=== PATIENT | male | born 1955 | race Caucasian/White ===

== ENCOUNTER 2016-12-06 10:28 | Outpatient (CLI) | payer MEDICAID ==
[~2016-12-06] VITALS: Ht 195.6 cm; Wt 66.4 kg
[~2016-12-06 10:28] MED LIST: ASPIRIN81 MG PO; BENICAR20 MG PO; HYDROCODON-ACE1 EAC7 PO; HYDROCODONE-APA1 TAB PO; HYDROCORTISO28.35 G1 TOPICAL; NICODERM C1 PATCH .1 TRANSDERM
[2016-12-06] MEDS ORDERED: MORPHINE SULFAT30 M4 PO (11:27)
[2016-12-06 11:31] VITALS: BP 95/63; Ht 195.6 cm; Wt 66.4 kg
--- NOTE | 2016-12-06 17:56 | NUR ---
1320- PT CAME WITH RIGHT CHEST INFUSAPORT ACCESSED FROM OFFICE. FIRST UNIT OF PRBC'S TRANSFUSING WITHOUT DIFFICULTY. WILL MONITOR.
--- NOTE | 2016-12-06 18:41 | NUR ---
1450 REPORT RECEIVED FROM QUIRINO PINA RN, PT RECEIVING BLOOD VIA INFUSAPORT. DENIES PROBLEMS RATE AT 200/CC/HR. 1520 URINAL PROVIDED, VOIDS 300CC. 1544 1ST UNIT BLOOD HAS COMPLETED LINE BEING FLUSHED WITH NS. 1558 LASIX 20MG IV GIVEN. 1625 2ND UNIT CHECKED AT BEDSIDE BY THIS NURSE AND LORENE GREENBERG RN INITIATED BY ALARIS PUMP AT 50/CC/HR. PT VOIDS 300/CC/HR 1640 DENIES PROBLEMS, RATE INCREASED TO 125/CC/HR. 1710 BLOOD GOING WELL, RATE INCREASED TO 175/CC/HR REG DIET ORDERED 1755 VOIDS 200/CC AWAITING SUPPER 1822 REG DIET SERVED BLOOD HAS COMPLETED LINE BEING FLUSHED WITH NS.
--- NOTE | 2016-12-06 19:44 | NUR ---
190 LINE HAS CLEARED PT VOIDS LG AMT. PORT FLUSHED WITH NS AND HEPARIN, BESS NEEDLE DC'D WITH CATH INTACT. 1924 POST Bria MCCANN, DENIES PROBLEMS, DC INSTS. REVIEWED. RELEASED AMB.
== END 2016-12-06 19:25 | disposition home or self-care (01) ==
LOC: D.OPS 10:28
DX: D64.81 Anemia due to antineoplastic chemotherapy (principal)

== ENCOUNTER 2017-01-29 09:19 | Inpatient (IN) | payer MEDICAID ==
[~2017-01-29] VITALS: Ht 195.6 cm; Wt 60.0 kg
[~2017-01-29 09:19] MED LIST changes: +MORPHINE SULFAT30 M4 PO
[2017-01-29 10:11] LABS: BASOPHILS 0.2 % (0.0-2.0); EOSINOPHILS 0.2 % (0-7); HEMATOCRIT 28.3 % (42.0-54.0); HEMOGLOBIN 8.9 g/dL (13.5-17.5); IMMATURE GRANULOCYTES 0.7 % (0-5); LYMPHOCYTES 7.4 % (15-50); MCH 25.7 pg (26.0-34.0); MCHC 31.4 g/dL (31.0-37.0); MCV 81.8 fL (80.0-100.0); MEAN PLATELET VOLUME 10.3 fL (7.4-10.4); MONOCYTES 4.3 % (2-11); NEUTROPHILS 87.2 % (40-80); PLATELET COUNT 436 10x3/uL (130-400); RBC 3.46 10x6/uL (4.20-6.10); WBC 12.7 10x3/uL (4.8-10.8)
[2017-01-29 10:20] LABS: ALBUMIN 2.6 g/dL (3.4-5.0); ALKALINE PHOSPHATASE 116 U/L (46-116); ALT (SGPT) 22 U/L (10-68); BILIRUBIN - TOTAL 0.43 mg/dL (0.2-1.3); CALC OSMOLALITY 272 mosm/kg (275-300); CARBON DIOXIDE 27.6 mmol/L (21.0-32.0); CHLORIDE - SERUM 100 mmol/L (98-107); CREATININE - SERUM 0.9 mg/dL (0.6-1.3); GLUCOSE 119 mg/dL (74-106); POTASSIUM - SERUM 3.9 mmol/L (3.5-5.1); PROTEIN - SERUM 7.2 g/dL (6.4-8.2); SODIUM 135 mmol/L (136-145); UREA NITROGEN 18 mg/dL (7-18); eGFR NON AFRICAN AMERICAN > 90 mL/min (90-120)
[2017-01-29 10:23] LABS: CALCIUM 12.2 mg/dL (8.5-10.1)
--- NOTE | 2017-01-29 12:30 | NUR ---
PT REC'D TO FLOOR FROM ER VIA WC. ABLE TO AMBULATE W/O ASSISTANCE. AAOX4. PT THIN. REGULAR HEART RATE AND RHYTHM. LUNG SOUNDS DIMINISHED THOUGHTOUT. BOWEL SOUNDS HYPOACTIVE. X4 QUADRANTS. NICKEL SIZE SCAB TO COCCYX. NO DRAINAGE NOTED. R CHEST PORT WELL DEFINED. BED LOW, CALL LIGHT IN REACH, DENIES NEEDS. CPOC.
[2017-01-29] MEDS ORDERED: GABAPENTIN100 MG PO (12:46)
[2017-01-29] MEDS ORDERED: MORPHINE SULFAT30 M4 PO (12:47)
[2017-01-29] MEDS ORDERED: BACLOFEN10 MG PO (12:48)
[2017-01-29] MEDS ORDERED: PHENERGAN25 M1 PO (12:48)
[2017-01-29] MEDS ORDERED: ZANAFLEX6 MG PO (12:49)
[2017-01-29] MEDS ORDERED: IBUPROFEN200 MG PO (12:50)
[2017-01-29] MEDS ORDERED: HYDROCODON-ACE1 EAC9 PO (12:51)
--- NOTE | 2017-01-29 16:19 | NUR ---
PT AOX4 RESP EVEN AND NONLABORED RESP EVEN AND NONLABORED PT DENIES NEEDS AT THIS TIME BED AT LOWEST SETTING AND CALL LIGHT WITHIN REACH PT HERE FOR HELP WITH CONSTIPATION WILL CONTINUE TO MONITOR
[2017-01-29 16:36] VITALS: BP 105/69
--- NOTE | 2017-01-29 16:45 | NUR ---
GOLYTELY STARTED AT THIS TIME. MIXED WITH SPRITE AND GATORAGE. EXPLAINED TO PT TO DRINK 8 OZ Q 10-15 MINUTES. PT STATES HE UNDERSTANDS. BED LOW, CALL LIGHT IN REACH, DENEIS NEEDS. CPOC.
--- NOTE | 2017-01-29 18:34 | NUR ---
PT HAD LARGE BM. STATED HE WOULD KEEP DRINKING THE GOLYTELY TO HELP "CLEAN HIMSELF OUT" HE STATES. DR. PIKE UPDATED ON POC.
[2017-01-29 20:00] VITALS: BP 83/53
--- NOTE | 2017-01-30 00:21 | NUR ---
PATIENT COMPLAINED OF 8/10 PAIN AND GOT A NORCO TABLET FOR PAIN. REQESTED A SLEEPING MEDICATION AND ASKED WHEN HE WOULD STOP HAVING BOWEL MOVEMENTS. UA COLECTED AND SENDING TO LAB. NO OTHER NEEDS NOTED AT THIS TIME.
[2017-01-30 00:30] VITALS: BP 76/47
[2017-01-30 00:44] LABS: APPEARANCE HAZY (CLEAR); BILIRUBIN NEGATIVE (NEGATIVE); COLOR YELLOW (YELLOW); GLUCOSE NEGATIVE (NEGATIVE); KETONE NEGATIVE (NEGATIVE); LEUKOCYTE ESTERASE NEGATIVE (NEGATIVE); NITRITE NEGATIVE (NEGATIVE); PROTEIN NEGATIVE (NEGATIVE); UROBILINOGEN NORMAL (NORMAL)
--- NOTE | 2017-01-30 02:00 | NUR ---
PT IN BED WITH NO NEEDS. SIDE RAILS X 2. BED LOW. CALL LIGHT IN REACH.
--- NOTE | 2017-01-30 02:43 | NUR ---
PATIENT HAD SOFT BOWEL MOVEMENT IN BED. 20G PIV STARTED IN RIGHT FOREARM WITH NS INFUSING AT 100mL/HR.
[2017-01-30 04:39] VITALS: BP 93/66
[2017-01-30 05:25] LABS: BASOPHILS 0.1 % (0.0-2.0); EOSINOPHILS 0.4 % (0-7); HEMATOCRIT 26.6 % (42.0-54.0); HEMOGLOBIN 8.4 g/dL (13.5-17.5); IMMATURE GRANULOCYTES 0.3 % (0-5); LYMPHOCYTES 8.2 % (15-50); MCH 25.6 pg (26.0-34.0); MCHC 31.6 g/dL (31.0-37.0); MCV 81.1 fL (80.0-100.0); MEAN PLATELET VOLUME 11.3 fL (7.4-10.4); MONOCYTES 5.9 % (2-11); NEUTROPHILS 85.1 % (40-80); PLATELET COUNT 399 10x3/uL (130-400); RBC 3.28 10x6/uL (4.20-6.10); RDW 19.8 % (11.5-14.5); WBC 11.5 10x3/uL (4.8-10.8)
[2017-01-30 05:54] LABS: CALC OSMOLALITY 273 mosm/kg (275-300); CARBON DIOXIDE 25.7 mmol/L (21.0-32.0); CHLORIDE - SERUM 101 mmol/L (98-107); CREATININE - SERUM 0.7 mg/dL (0.6-1.3); GLUCOSE 101 mg/dL (74-106); POTASSIUM - SERUM 4.3 mmol/L (3.5-5.1); SODIUM 136 mmol/L (136-145); UREA NITROGEN 17 mg/dL (7-18); eGFR NON AFRICAN AMERICAN > 90 mL/min (90-120)
[2017-01-30 06:07] LABS: CALCIUM 12.4 mg/dL (8.5-10.1)
--- NOTE | 2017-01-30 06:22 | NUR ---
PAGED FOR MD TO NOTIFY THEM OF CRITICAL HI LAB FOR CALCIUM 12.4
--- NOTE | 2017-01-30 07:47 | NUR ---
PATIENT IS IN THE SHOWER. PROFESSOR OF THEATRE IN ROOM CHANGING BED LINENS.
--- NOTE | 2017-01-30 07:55 | NUR ---
PATIENT ALERT IN [place] POSITION. RESPIRATIONS EVEN AND UNLABORED. VENANCIO, NURSE AID AT BEDSIDE. SIDE RAILS UP X2. BED IN LOW POSITION. CALL LIGHT IN REACH.
--- NOTE | 2017-01-30 08:12 | NUR ---
PT ASSESSMENT COMPLETE AWAKE AND ALERT ORINETED X 3 HAS KNOWN HISTORY OF STAGE 4 LUNG CANCER NOTED TO HAVE DIMINISHED BREATH SOUNDS TO RIGHT UPPER LOBE. HAS COMPLAINT THIS AM OF MULTIPLE BOWEL MOVMENTS PT WAS TAKING GO AUGUSTUS TO RESOLVE CONSTIPATION. EXPLAINED TO PT THAT IT WOULD NOT BE WOLFE TO NOW ATTEMPT TO STOP STOOL. PT EXPRESSED UNDERSTANDING.
[2017-01-30 08:58] VITALS: BP 108/87
[2017-01-30 11:36] VITALS: BP 121/82
--- NOTE | 2017-01-30 12:30 | NUR ---
Patient Name: TRINI NAGY Admission Status: ER Accout number: [id number] Admission Date: 01-29-2017 : 1955 Admission Diagnosis: Attending: VIDHYA Current LOS: 1 Anticipated DC Date: 02-02-2017 Planned Disposition: Home or Self Care Primary Insurance: [place]ICAID [place] Discharge Planning Comments: CM MET WITH PATIENT REGARDING D/C NEEDS AND PLANS. PATIENT STATED HE LIVES WITH HIS FIANCE (JADEN WEISS) AND SHE WILL DRIVE HIM HOME AT DISCHARGE. PATIENT HAS 2 STEPS TO ENTER HOME AND NO STAIRS INSIDE. PATIENT STATED HE IS INDEPENDENT WITH HIS CARE AND HAS NO DME AT HOME. PATIENT HAS NO PCP AND USES [facility] [address] FOR HIS PHARMACY. PATIENT IS INTERESTED IN [employer]ALS ON WHEELS AND NUMBER HAS BEEN GIVEN TO PATIENT. PATIENT HAS NOT HAD HOME HEALTH AND DOES NOT WANT IT AT THIS TIME. PCP NONE [facility] [address]- [phone] JADEN WEISS ([employer]) [phone] Airport Sales Agent: Isela Love Is the patient Alert and Oriented? Yes 0 * How many steps to enter\exit or inside your home? 2 W/RAILS 0 * PCP NONE 0 * [facility] [address] * Preadmission Environment Home with Family 0 * ADLs Independent 0 * Equipment None 0 * List name and contact numbers for known caregivers / representatives who currently or will assist patient after discharge: JADEN SHULTZTERS (CANDE) [phone] KRISTA (BROTHER) [phone] * Community resources currently utilized None 0 * Additional services required to return to the preadmission environment? Yes 0 * Can the patient safely return to the preadmission environment? Yes 0 * Has this patient been hospitalized within the prior 30 days at any hospital? No 0 Grand Total: 0
--- NOTE | 2017-01-30 13:47 | NUR ---
PT COMPLAINS OF PAIN TO ANAL OPENING NOTED TO HAVE HEMMERHOID. NEW ORDER FOR ANUSOL SUPPOSITORY.
[2017-01-30 14:44] VITALS: BMI 15.6
[2017-01-30 15:51] VITALS: BP 104/77
--- NOTE | 2017-01-30 18:10 | NUR ---
PT CONTINUES TO HAVE SMALL SOFT STOOLS HAD HC SUPPOSITORY PER ORDER EARLIER STATES RELEIF OF HEMMROIDAL PAIN.
[2017-01-30 19:00] VITALS: BP 119/75
--- NOTE | 2017-01-30 20:45 | NUR ---
PATIENT RESTING IN BE RIGHT LATERAL POSITION. NO SIGNS OF DISTRESS NOTED. C/O PAIN TO CHEST AND BACK. SCHEDULEDS MS CONTIN GIVEN. OTHER SCHEDULED MEDS GIVEN. SHIFT ASSESSMENT COMPLETED. DENIES ANY OTHER NEEDS AT THIS TIME. BED LOW. CALL LIGHT IN REACH.
[2017-01-31] VITALS: BP 101/67
[2017-01-31 04:00] VITALS: BP 116/82
--- NOTE | 2017-01-31 04:33 | NUR ---
ИВАН ZHANG AT BEDSIDE. PATIENT'S BED IN LOWEST POSITION AND CALL LIGHT WITHIN REACH.
[2017-01-31 05:41] LABS: HEMATOCRIT 25.8 % (42.0-54.0); HEMOGLOBIN 8.5 g/dL (13.5-17.5); LYMPHOCYTES 9.3 % (15-50); MCH 26.9 pg (26.0-34.0); MCHC 32.9 g/dL (31.0-37.0); MCV 81.6 fL (80.0-100.0); MEAN PLATELET VOLUME 10.2 fL (7.4-10.4); NEUTROPHILS 83.2 % (40-80); RBC 3.16 10x6/uL (4.20-6.10); RDW 19.6 % (11.5-14.5); WBC 12.2 10x3/uL (4.8-10.8)
[2017-01-31 05:43] LABS: PLATELET COUNT 495 10x3/uL (130-400)
[2017-01-31 06:08] LABS: ALBUMIN 2.6 g/dL (3.4-5.0); ALKALINE PHOSPHATASE 103 U/L (46-116); ALT (SGPT) 18 U/L (10-68); BILIRUBIN - TOTAL 0.45 mg/dL (0.2-1.3); CALC OSMOLALITY 275 mosm/kg (275-300); CALCIUM 11.2 mg/dL (8.5-10.1); CARBON DIOXIDE 24.4 mmol/L (21.0-32.0); CHLORIDE - SERUM 105 mmol/L (98-107); CREATININE - SERUM 0.6 mg/dL (0.6-1.3); GLUCOSE 87 mg/dL (74-106); POTASSIUM - SERUM 4.4 mmol/L (3.5-5.1); PROTEIN - SERUM 6.7 g/dL (6.4-8.2); SODIUM 139 mmol/L (136-145); UREA NITROGEN 10 mg/dL (7-18); eGFR NON AFRICAN AMERICAN > 90 mL/min (90-120)
--- NOTE | 2017-01-31 07:55 | NUR ---
ASSESSMENT PER FLOW SHEET.PT WITHOUT DISTRESS AT PRESENT. REQUEST APAIN MEDS WHEN TIME.CALL LIGHT IN REACH.
[2017-01-31 08:10] VITALS: BP 101/75
[2017-01-31 11:41] VITALS: BP 111/77
[2017-01-31 14:17] VITALS: Ht 195.6 cm; Wt 60.0 kg
[2017-01-31 16:41] VITALS: BP 120/74
--- NOTE | 2017-01-31 19:38 | NUR ---
REMAINS WITHOUT NEEDS,WITHOUT CHANGE.CONT PLAN OF CARE
--- NOTE | 2017-01-31 19:50 | NUR ---
RIGHT PORT ACCESSED USING HELP DESK TECHNICIAN 20G X1 STCK
[2017-01-31 20:00] VITALS: BP 102/67
--- NOTE | 2017-01-31 20:05 | NUR ---
ASSESSMENT COMPLETED, NO ACUTE DISTRESS NOTED, DENIES NEEDS AT THIS TIME, REFUSES TELEMETERY, SR'S UP ,CL IN REACH, WILL MONITOR
--- NOTE | 2017-01-31 21:19 | NUR ---
MEDS GIVEN PER MAR, BENNIE WELL, DENIES NEEDS, STILL REFUSES TELEMETRY, WILL RETURN BOX, CL IN REACH
[2017-02-01] VITALS: BP 118/74
[2017-02-01 04:00] VITALS: BP 94/62
--- NOTE | 2017-02-01 06:12 | NUR ---
MEDS GIVEN PER MAR, BENNIE WELL, CL IN REACH
--- NOTE | 2017-02-01 07:15 | NUR ---
ASSESSMENT PER FLOW SHEET.PT WITHOUT DISTRESS.STILL COMPLAINS OF PAIN TO ABDOMEN,RECTAL AND RIGHT SIDE.WITHOUT FURTHER NEEDS AT PRESENT.CALL LIGHT IN REACH.
[2017-02-01 08:30] LABS: BASOPHILS 0.2 % (0.0-2.0); EOSINOPHILS 0.3 % (0-7); HEMATOCRIT 24.7 % (42.0-54.0); IMMATURE GRANULOCYTES 0.3 % (0-5); LYMPHOCYTES 8.2 % (15-50); MCH 26.4 pg (26.0-34.0); MCHC 32.4 g/dL (31.0-37.0); MCV 81.5 fL (80.0-100.0); MONOCYTES 9.4 % (2-11); NEUTROPHILS 81.6 % (40-80); PLATELET COUNT 491 10x3/uL (130-400); RBC 3.03 10x6/uL (4.20-6.10); RDW 19.5 % (11.5-14.5)
[2017-02-01 08:41] VITALS: BP 109/75
[2017-02-01 08:59] LABS: ALBUMIN 2.7 g/dL (3.4-5.0); ALKALINE PHOSPHATASE 98 U/L (46-116); ALT (SGPT) 16 U/L (10-68); BILIRUBIN - TOTAL 0.56 mg/dL (0.2-1.3); CALC OSMOLALITY 274 mosm/kg (275-300); CALCIUM 11.3 mg/dL (8.5-10.1); CARBON DIOXIDE 23.5 mmol/L (21.0-32.0); CHLORIDE - SERUM 105 mmol/L (98-107); CREATININE - SERUM 0.6 mg/dL (0.6-1.3); POTASSIUM - SERUM 3.9 mmol/L (3.5-5.1); PROTEIN - SERUM 6.9 g/dL (6.4-8.2); SODIUM 139 mmol/L (136-145); UREA NITROGEN 10 mg/dL (7-18); eGFR NON AFRICAN AMERICAN > 90 mL/min (90-120)
[2017-02-01 09:10] LABS: GLUCOSE 68 mg/dL (74-106)
--- NOTE | 2017-02-01 12:22 | NUR ---
LYING IN BED,WITHOUT DISTRESS.CALL LIGHT IN REACH
--- NOTE | 2017-02-01 13:56 | NUR ---
NUTRITION MONITORING & EVAL CHART REVIEWED. PT ON CLEAR LIQUID DIET. RECOMMEND ADVANCE DIET WHEN MEDICALLY FEASIBLE. RD FOLLOWING
[2017-02-01 13:58] VITALS: BP 118/85
--- NOTE | 2017-02-01 16:07 | NUR ---
AGREEABLE TO FLEETS ENEMA.3 LARGE FORMED STOOLS LIGHT BROWN IN COLOR.
[2017-02-01 17:09] VITALS: BP 110/73
--- NOTE | 2017-02-01 18:05 | NUR ---
SPOKE WITH DEONDRE IN PHARMACY RE... MIACALIN DOSE FOR THIS AFTERNOON. HE IS TO BRING DOSE TO UNIT
--- NOTE | 2017-02-01 18:23 | NUR ---
REMAINS WITHOUT NEEDS,WITHOUT CHANGE.CONT PLAN OF CARE
[2017-02-01 20:00] VITALS: BP 106/59
--- NOTE | 2017-02-01 20:40 | NUR ---
AWAKE,ALERT. NO COMPLAINTS VOICED.IV INFUSING TO RIGHT PORT WIHTOUT REDNESS OR EDEMA NOTED. CL IN REACH.
[2017-02-02] VITALS: BP 88/53
--- NOTE | 2017-02-02 03:10 | NUR ---
AWAKE WIHTOUT COMPLAINTS. CL IN REACH..
[2017-02-02 04:00] VITALS: BP 95/60
--- NOTE | 2017-02-02 04:34 | NUR ---
PT IS AWAKE MOVING ABOUT THE BED TRYING TO GET COMFORTABLE. NO DISTRESS NOTED. RESPIRATIONS ARE EVEN AND UNLABORED. THE BED IS LOW, RAILS UP X'S 2 WITH THE CALL LIGHT AT HAND.
[2017-02-02 05:40] LABS: BASOPHILS 0.1 % (0.0-2.0); EOSINOPHILS 0.1 % (0-7); HEMATOCRIT 25.1 % (42.0-54.0); HEMOGLOBIN 7.9 g/dL (13.5-17.5); IMMATURE GRANULOCYTES 0.2 % (0-5); LYMPHOCYTES 7.7 % (15-50); MCH 25.8 pg (26.0-34.0); MCHC 31.5 g/dL (31.0-37.0); MEAN PLATELET VOLUME 10.8 fL (7.4-10.4); MONOCYTES 7.9 % (2-11); PLATELET COUNT 508 10x3/uL (130-400); RBC 3.06 10x6/uL (4.20-6.10); RDW 19.4 % (11.5-14.5); WBC 14.7 10x3/uL (4.8-10.8)
--- NOTE | 2017-02-02 06:11 | NUR ---
LYING QUIETLY. NO COMPLINATS VICED. CL IN REACH.
[2017-02-02 06:25] LABS: ALBUMIN 2.7 g/dL (3.4-5.0); ALKALINE PHOSPHATASE 100 U/L (46-116); ALT (SGPT) 16 U/L (10-68); BILIRUBIN - TOTAL 0.66 mg/dL (0.2-1.3); CARBON DIOXIDE 22.9 mmol/L (21.0-32.0); CHLORIDE - SERUM 106 mmol/L (98-107); CREATININE - SERUM 0.6 mg/dL (0.6-1.3); POTASSIUM - SERUM 3.7 mmol/L (3.5-5.1); PROTEIN - SERUM 6.8 g/dL (6.4-8.2); SODIUM 140 mmol/L (136-145); UREA NITROGEN 10 mg/dL (7-18); eGFR NON AFRICAN AMERICAN > 90 mL/min (90-120)
[2017-02-02 06:45] LABS: CALC OSMOLALITY 275 mosm/kg (275-300); GLUCOSE 64 mg/dL (74-106)
[2017-02-02 08:01] VITALS: BP 100/64
--- NOTE | 2017-02-02 10:40 | NUR ---
PT ASSESSMENT COMPLETE AWAKE AND ALERT ORIENTED X 3 LUNGS WITH DIMINISHED RIGHT UPPER LOOBE NOTED POSTIERROIR. PT HAS COMLAINT OF PAIN AND DISCOMFORT WITH AMBULATION. DR AGAPITO ASHLEY
[2017-02-02 12:11] VITALS: BP 94/60
[2017-02-02 15:44] VITALS: BP 77/42
--- NOTE | 2017-02-02 17:48 | NUR ---
DR MULLER HERE TO MANUALLY REMOVE LARGE SOFT FECES BALL. PT HAD BEEN GIVEN DILAUDID FOR PAIN. NS BOLUS RUNNING FOR LOW PRESSURE. PT TOLERATED PROCEDURE WITH SOME DISCOMFORT BUT PAIN WAS TOLERABLE AFTERWARDS. CLEANED UP AND NEW LINENS TO BED. CALL LIGHT IN REACH
--- NOTE | 2017-02-02 18:44 | NUR ---
PT RESTING WELL AT THIS TIME TOOK ALL MEDS WITH NO DIFFICULTY NOTED VOICES ALL NEEDS TO STAFF. TOLERATED BLOOD TRANSFUSION WITH NO DIFFICULTY.
[2017-02-02 20:00] VITALS: BP 101/61
[2017-02-03] VITALS: BP 85/55
[2017-02-03 04:00] VITALS: BP 94/58
--- NOTE | 2017-02-03 05:05 | NUR ---
PT IS ASLEEP WITH EASY RESPIRATION AND NO DISTRESS NOTED. ON ROOM AIR ONLY. THE URINAL IS AT THE BEDSIDE. THE BED IS LOW, RAILS UP X'S 2 WITH THE CALL LIGHT AT HAND.
[2017-02-03 06:09] LABS: BASOPHILS 0.1 % (0.0-2.0); EOSINOPHILS 0.5 % (0-7); HEMATOCRIT 26.6 % (42.0-54.0); HEMOGLOBIN 8.6 g/dL (13.5-17.5); IMMATURE GRANULOCYTES 0.3 % (0-5); LYMPHOCYTES 8.2 % (15-50); MCH 26.2 pg (26.0-34.0); MCHC 32.3 g/dL (31.0-37.0); MCV 81.1 fL (80.0-100.0); MEAN PLATELET VOLUME 9.8 fL (7.4-10.4); MONOCYTES 7.3 % (2-11); NEUTROPHILS 83.6 % (40-80); PLATELET COUNT 447 10x3/uL (130-400); RBC 3.28 10x6/uL (4.20-6.10); RDW 18.9 % (11.5-14.5); WBC 14.3 10x3/uL (4.8-10.8)
[2017-02-03 06:28] LABS: ALBUMIN 2.4 g/dL (3.4-5.0); ALKALINE PHOSPHATASE 109 U/L (46-116); ALT (SGPT) 17 U/L (10-68); CARBON DIOXIDE 26.5 mmol/L (21.0-32.0); CHLORIDE - SERUM 105 mmol/L (98-107); CREATININE - SERUM 0.5 mg/dL (0.6-1.3); POTASSIUM - SERUM 3.6 mmol/L (3.5-5.1); PROTEIN - SERUM 6.4 g/dL (6.4-8.2); SODIUM 136 mmol/L (136-145); UREA NITROGEN 9 mg/dL (7-18); eGFR NON AFRICAN AMERICAN > 90 mL/min (90-120)
[2017-02-03 07:07] LABS: CALC OSMOLALITY 270 mosm/kg (275-300); GLUCOSE 103 mg/dL (74-106)
[2017-02-03 07:09] LABS: CALCIUM 12.4 mg/dL (8.5-10.1)
--- NOTE | 2017-02-03 07:40 | NUR ---
REPORT RECEIVED FROM MOISTURE CONDITIONER OPERATOR NURSE. CALL LIGHT IN REACH.
[2017-02-03 08:50] VITALS: BP 88/60
--- NOTE | 2017-02-03 09:05 | NUR ---
ASSESSMENT COMPLETED. OFFERED SCDs BUT REFUSED. CALL LIGHT IN REACH. WILL CONTINUE WITH PLAN OF CARE.
--- NOTE | 2017-02-03 11:31 | NUR ---
AM MEDS ADMINISTERED. BACLOFEN PO. ALSO HELD BP MED D/T BP OF 88/40.
--- NOTE | 2017-02-03 11:36 | NUR ---
PASSWORD OBTAINED AND PLACED IN COMPUTER.
[2017-02-03] MEDS ORDERED: MIRALAX17 GM PO (12:18)
[2017-02-03] MEDS ORDERED: ANUSOL-HC 2.5%30 GM RC (12:18)
[2017-02-03] MEDS ORDERED: MILK OF MAGNESI30 ML PO (12:19)
[2017-02-03 12:59] VITALS: BP 86/58
--- NOTE | 2017-02-03 13:14 | NUR ---
CM REASSESSMENT NOTE: PATIENT IS DISCHARGING HOME TODAY- FIANCE DRIVING HIM HOME. PATIENT IS HAVING A WALKER DELIVERED FROM [facility] BEFORE D/C . PATIENT REF. HH AND HAD NO OTHER NEEDS FOR D/C.
--- NOTE | 2017-02-03 14:34 | NUR ---
OMICO PO. WILL GO HEAD AND GET PRBC.
--- NOTE | 2017-02-03 15:07 | NUR ---
pt seen for glue wheel operator note. bp meds held today due to low bp. not complaining of abdominal pain but still some rectal pain. call light in reach
--- NOTE | 2017-02-03 17:16 | NUR ---
AFTERNOON MEDS ADMINISTERED. CALL LIGHT IN REACH.
--- NOTE | 2017-02-03 18:56 | NUR ---
PRBC UNIT 1 COMPLETED. VSS. ALBUMIN 1ST BOTTLE INITIATED.
--- NOTE | 2017-02-03 20:01 | NUR ---
DC INSTRUCTIONS EXPLAINED TO PATIENT. VERBALIZED UNDERSTANDING.
--- NOTE | 2017-02-03 20:22 | NUR ---
DC'D TO VEHICLE VIA WC WITH BROTHER.
== END 2017-02-03 20:22 | disposition home or self-care (01) | DRG 388 ==
LOC: D.ER 09:19 → D.MS 11:34 → OBSVTIME 11:34 → D.MS 01-30 10:25
PROVIDERS: Emergency Medicine; ADMIT Family Medicine
DX: K56.41 Fecal impaction (principal); E43 Unspecified severe protein-calorie malnutrition; C34.90 Malignant neoplasm of unspecified part of unspecified bronchus or lung; F17.203 Nicotine dependence unspecified, with withdrawal; R04.2 Hemoptysis; R64 Cachexia; Z68.1 Body mass index [BMI] 19.9 or less, adult; R73.9 Hyperglycemia, unspecified; D63.0 Anemia in neoplastic disease; Z86.12 Personal history of poliomyelitis; I95.9 Hypotension, unspecified; R00.0 Tachycardia, unspecified; G89.29 Other chronic pain; K64.8 Other hemorrhoids; D50.9 Iron deficiency anemia, unspecified

== ENCOUNTER 2017-02-09 11:43 | Inpatient (IN) | payer MEDICARE ==
[~2017-02-09 11:43] MED LIST changes: +ANUSOL-HC 2.5%30 GM RC; +BACLOFEN10 MG PO; +GABAPENTIN100 MG PO; +HYDROCODON-ACE1 EAC9 PO; +IBUPROFEN200 MG PO; +MILK OF MAGNESI30 ML PO; +MIRALAX17 GM PO; +PHENERGAN25 M1 PO; +ZANAFLEX6 MG PO
[2017-02-09 13:39] LABS: HEMATOCRIT 30.5 % (42.0-54.0); HEMOGLOBIN 9.6 g/dL (13.5-17.5); MCH 26.2 pg (26.0-34.0); MCHC 31.5 g/dL (31.0-37.0); MCV 83.3 fL (80.0-100.0); MEAN PLATELET VOLUME 10.4 fL (7.4-10.4); PLATELET COUNT 441 10x3/uL (130-400); RBC 3.66 10x6/uL (4.20-6.10); RDW 18.8 % (11.5-14.5); WBC 21.2 10x3/uL (4.8-10.8)
[2017-02-09 13:41] LABS: APTT 26.3 SECONDS (22.8-39.4)
[2017-02-09 13:42] LABS: INR 1.29 (0.85-1.17)
[2017-02-09 14:05] LABS: ALBUMIN 2.5 g/dL (3.4-5.0); ALKALINE PHOSPHATASE 94 U/L (46-116); ALT (SGPT) 15 U/L (10-68); BILIRUBIN - TOTAL 0.26 mg/dL (0.2-1.3); CALC OSMOLALITY 282 mosm/kg (275-300); CARBON DIOXIDE 30.7 mmol/L (21.0-32.0); CHLORIDE - SERUM 102 mmol/L (98-107); CREATININE - SERUM 0.9 mg/dL (0.6-1.3); GLUCOSE 101 mg/dL (74-106); PROTEIN - SERUM 6.5 g/dL (6.4-8.2); SODIUM 140 mmol/L (136-145); UREA NITROGEN 24 mg/dL (7-18); eGFR NON AFRICAN AMERICAN > 90 mL/min (90-120)
[2017-02-09 14:06] LABS: CALCIUM 14.4 mg/dL (8.5-10.1)
[2017-02-09 14:09] LABS: LYMPHOCYTES 6 % (15-50); MONOCYTES 4 % (2-11); NEUTROPHILS 88 % (40-80)
[2017-02-09 14:10] LABS: PLATELET ESTIMATE NORMAL
[2017-02-09 17:57] LABS: CREATINE KINASE 13 UL (21-232); TROPONIN-I < 0.017 ng/mL (0.000-0.060)
[2017-02-09 21:45] LABS: APPEARANCE CLEAR (CLEAR); BILIRUBIN NEGATIVE (NEGATIVE); COLOR YELLOW (YELLOW); GLUCOSE NEGATIVE (NEGATIVE); KETONE NEGATIVE (NEGATIVE); LEUKOCYTE ESTERASE NEGATIVE (NEGATIVE); NITRITE NEGATIVE (NEGATIVE); PROTEIN NEGATIVE (NEGATIVE); UROBILINOGEN NORMAL (NORMAL)
[2017-02-09 21:46] LABS: EPITHELIAL CELLS 0-5 /hpf (0-5); RED CELLS - URINE 0-5 /hpf (0-5); WHITE CELLS - URINE 0-5 /hpf (0-5)
[2017-02-09 21:47] LABS: BACTERIA FEW /hpf (NONE SEEN)
[2017-02-09 22:39] LABS: CKMB 0.1 U/L (0.0-3.6)
[2017-02-09 22:41] LABS: CREATINE KINASE 6 UL (21-232); TROPONIN-I < 0.017 ng/mL (0.000-0.060)
[2017-02-10 06:28] LABS: BASOPHILS 0.1 % (0.0-2.0); EOSINOPHILS 0.1 % (0-7); HEMATOCRIT 30.3 % (42.0-54.0); HEMOGLOBIN 9.6 g/dL (13.5-17.5); IMMATURE GRANULOCYTES 0.5 % (0-5); LYMPHOCYTES 5.2 % (15-50); MCH 26.4 pg (26.0-34.0); MCHC 31.7 g/dL (31.0-37.0); MCV 83.5 fL (80.0-100.0); MONOCYTES 6.2 % (2-11); NEUTROPHILS 87.9 % (40-80); PLATELET COUNT 474 10x3/uL (130-400); RBC 3.63 10x6/uL (4.20-6.10); WBC 25.7 10x3/uL (4.8-10.8)
[2017-02-10 07:04] LABS: ALBUMIN 2.4 g/dL (3.4-5.0); ALKALINE PHOSPHATASE 92 U/L (46-116); ALT (SGPT) 15 U/L (10-68); CALC OSMOLALITY 275 mosm/kg (275-300); CARBON DIOXIDE 30.1 mmol/L (21.0-32.0); CHLORIDE - SERUM 101 mmol/L (98-107); CREATINE KINASE 8 UL (21-232); CREATININE - SERUM 0.8 mg/dL (0.6-1.3); GLUCOSE 90 mg/dL (74-106); POTASSIUM - SERUM 3.5 mmol/L (3.5-5.1); PROTEIN - SERUM 6.9 g/dL (6.4-8.2); SODIUM 137 mmol/L (136-145); TROPONIN-I < 0.017 ng/mL (0.000-0.060); UREA NITROGEN 18 mg/dL (7-18); eGFR NON AFRICAN AMERICAN > 90 mL/min (90-120)
[2017-02-10 07:13] LABS: CALCIUM 13.2 mg/dL (8.5-10.1)
[2017-02-11 05:51] LABS: BASOPHILS 0.1 % (0-2); EOSINOPHILS 0 % (0-7); HEMATOCRIT 28.8 % (42.0-54.0); HEMOGLOBIN 9.1 g/dL (13.5-17.5); IMMATURE GRANULOCYTES 0.5 % (0-5); LYMPHOCYTES 5.8 % (15-50); MCH 25.9 pg (26.0-34.0); MCHC 31.6 g/dL (31.0-37.0); MCV 82.1 fL (80.0-100.0); MEAN PLATELET VOLUME 10.3 fL (7.4-10.4); NEUTROPHILS 87.6 % (40-80); PLATELET COUNT 443 10x3/uL (130-400); RBC 3.51 10x6/uL (4.20-6.10); WBC 25.8 10x3/uL (4.8-10.8)
[2017-02-11 06:27] LABS: ALBUMIN 2.3 g/dL (3.4-5.0); ALKALINE PHOSPHATASE 90 U/L (46-116); ALT (SGPT) 17 U/L (10-68); CALC OSMOLALITY 276 mosm/kg (275-300); CALCIUM 11.5 mg/dL (8.5-10.1); CARBON DIOXIDE 29.2 mmol/L (21.0-32.0); CHLORIDE - SERUM 102 mmol/L (98-107); CREATININE - SERUM 0.6 mg/dL (0.6-1.3); GLUCOSE 92 mg/dL (74-106); POTASSIUM - SERUM 3.3 mmol/L (3.5-5.1); PROTEIN - SERUM 6.7 g/dL (6.4-8.2); SODIUM 138 mmol/L (136-145); UREA NITROGEN 15 mg/dL (7-18); eGFR NON AFRICAN AMERICAN > 90 mL/min (90-120)
[2017-02-12 05:50] LABS: BASOPHILS 0 % (0-2); EOSINOPHILS 0.1 % (0-7); HEMATOCRIT 29.1 % (42.0-54.0); HEMOGLOBIN 9.2 g/dL (13.5-17.5); IMMATURE GRANULOCYTES 0.6 % (0-5); LYMPHOCYTES 5.1 % (15-50); MCH 26.1 pg (26.0-34.0); MCHC 31.6 g/dL (31.0-37.0); MCV 82.7 fL (80.0-100.0); MEAN PLATELET VOLUME 10.5 fL (7.4-10.4); MONOCYTES 6.5 % (2-11); NEUTROPHILS 87.7 % (40-80); PLATELET COUNT 467 10x3/uL (130-400); RBC 3.52 10x6/uL (4.20-6.10); RDW 19.3 % (11.5-14.5); WBC 27.4 10x3/uL (4.8-10.8)
[2017-02-12 06:20] LABS: ALBUMIN 2.2 g/dL (3.4-5.0); ALKALINE PHOSPHATASE 95 U/L (46-116); ALT (SGPT) 22 U/L (10-68); BILIRUBIN - TOTAL 0.38 mg/dL (0.2-1.3); CALC OSMOLALITY 270 mosm/kg (275-300); CALCIUM 10.9 mg/dL (8.5-10.1); CARBON DIOXIDE 26.9 mmol/L (21.0-32.0); CHLORIDE - SERUM 102 mmol/L (98-107); CREATININE - SERUM 0.6 mg/dL (0.6-1.3); GLUCOSE 88 mg/dL (74-106); POTASSIUM - SERUM 3.7 mmol/L (3.5-5.1); PROTEIN - SERUM 6.6 g/dL (6.4-8.2); SODIUM 136 mmol/L (136-145); UREA NITROGEN 13 mg/dL (7-18); eGFR NON AFRICAN AMERICAN > 90 mL/min (90-120)
[2017-02-13 06:26] LABS: BASOPHILS 0.1 % (0-2); EOSINOPHILS 0.1 % (0-7); HEMATOCRIT 28.5 % (42.0-54.0); HEMOGLOBIN 9.3 g/dL (13.5-17.5); IMMATURE GRANULOCYTES 0.6 % (0-5); LYMPHOCYTES 5.7 % (15-50); MCH 26.7 pg (26.0-34.0); MCHC 32.6 g/dL (31.0-37.0); MCV 81.9 fL (80.0-100.0); MEAN PLATELET VOLUME 10.8 fL (7.4-10.4); MONOCYTES 6.3 % (2-11); NEUTROPHILS 87.2 % (40-80); PLATELET COUNT 426 10x3/uL (130-400); RBC 3.48 10x6/uL (4.20-6.10); RDW 19.4 % (11.5-14.5); WBC 28.6 10x3/uL (4.8-10.8)
[2017-02-13 06:46] LABS: ALBUMIN 2.2 g/dL (3.4-5.0); ALKALINE PHOSPHATASE 107 U/L (46-116); ALT (SGPT) 23 U/L (10-68); BILIRUBIN - TOTAL 0.34 mg/dL (0.2-1.3); CALC OSMOLALITY 271 mosm/kg (275-300); CALCIUM 11.7 mg/dL (8.5-10.1); CHLORIDE - SERUM 101 mmol/L (98-107); CREATININE - SERUM 0.6 mg/dL (0.6-1.3); GLUCOSE 111 mg/dL (74-106); PROTEIN - SERUM 6.6 g/dL (6.4-8.2); SODIUM 135 mmol/L (136-145); UREA NITROGEN 15 mg/dL (7-18); eGFR NON AFRICAN AMERICAN > 90 mL/min (90-120)
[2017-02-14 06:05] LABS: BASOPHILS 0.1 % (0-2); EOSINOPHILS 0.1 % (0-7); HEMATOCRIT 30.7 % (42.0-54.0); HEMOGLOBIN 9.8 g/dL (13.5-17.5); IMMATURE GRANULOCYTES 0.5 % (0-5); LYMPHOCYTES 5.9 % (15-50); MCH 26.3 pg (26.0-34.0); MCHC 31.9 g/dL (31.0-37.0); MCV 82.5 fL (80.0-100.0); MEAN PLATELET VOLUME 10.6 fL (7.4-10.4); NEUTROPHILS 87.4 % (40-80); PLATELET COUNT 433 10x3/uL (130-400); RBC 3.72 10x6/uL (4.20-6.10); RDW 19.7 % (11.5-14.5); WBC 31.4 10x3/uL (4.8-10.8)
[2017-02-14 06:34] LABS: ALBUMIN 2.4 g/dL (3.4-5.0); ALKALINE PHOSPHATASE 121 U/L (46-116); BILIRUBIN - TOTAL 0.35 mg/dL (0.2-1.3); CARBON DIOXIDE 25.2 mmol/L (21.0-32.0); CHLORIDE - SERUM 103 mmol/L (98-107); GLUCOSE 128 mg/dL (74-106); POTASSIUM - SERUM 4.3 mmol/L (3.5-5.1); PROTEIN - SERUM 7.2 g/dL (6.4-8.2); SODIUM 136 mmol/L (136-145)
[2017-02-14 06:55] LABS: ALT (SGPT) 30 U/L (10-68); CALC OSMOLALITY 276 mosm/kg (275-300); CALCIUM 12.7 mg/dL (8.5-10.1); CREATININE - SERUM 0.8 mg/dL (0.6-1.3); UREA NITROGEN 20 mg/dL (7-18); eGFR NON AFRICAN AMERICAN > 90 mL/min (90-120)
[2017-02-17] MEDS ORDERED: TESSALON PERLE100 MG PO (10:31)
[2017-02-17] MEDS ORDERED: MUCINEX600 MG PO (10:31)
[2017-02-17] MEDS ORDERED: RACEMIC EPI 2.0.5 ML UPD (10:31)
== END 2017-02-17 17:38 | disposition home health service (06) | DRG 177 ==
LOC: D.ER 11:43 → D.MS 15:02
PROVIDERS: Emergency Medicine; ADMIT Family Medicine
DX: J69.0 Pneumonitis due to inhalation of food and vomit (principal); E43 Unspecified severe protein-calorie malnutrition; R53.2 Functional quadriplegia; R64 Cachexia; C34.90 Malignant neoplasm of unspecified part of unspecified bronchus or lung; F17.203 Nicotine dependence unspecified, with withdrawal; K56.49 Other impaction of intestine; Z68.1 Body mass index [BMI] 19.9 or less, adult; J44.1 Chronic obstructive pulmonary disease with (acute) exacerbation; Z66 Do not resuscitate; Z51.5 Encounter for palliative care; I10 Essential (primary) hypertension; E83.52 Hypercalcemia; D64.9 Anemia, unspecified; I95.9 Hypotension, unspecified; R00.0 Tachycardia, unspecified; K59.00 Constipation, unspecified; R62.7 Adult failure to thrive; G89.3 Neoplasm related pain (acute) (chronic)